=== PATIENT | male | born 1970 | race Caucasian/White ===

== ENCOUNTER 2017-06-27 14:07 | Day surgery (SDC) | payer OTHER ==
[2017-06-27] VITALS (10 sets, daily range): BP systolic 125–146; BP diastolic 81–91; PULSE 58–76; RESP 8–18; O2SAT 95–98
[~2017-06-27] VITALS: Ht 175.3 cm; Wt 75.7 kg
[~2017-06-27 14:07] MED LIST: CeFAZolin Inj 2 GM in IV Premix 1 EACH IV SCH
[2017-06-27] MEDS ORDERED: Ondansetron 2 mg/mL 2 mL Inj ONE (14:08)
[2017-06-27] MEDS ORDERED: fentaNYL-PF 50 mCg/mL 2 mL Inj ONE ×2 (14:08→20:07)
[2017-06-27] MEDS ORDERED: Rocuronium 10 mg/mL 5 mL Inj ONE (14:08)
[2017-06-27] MEDS ORDERED: Propofol 10,000 mCg/mL 20 mL Inj ONE (14:08)
[2017-06-27] MEDS ORDERED: CeFAZolin 2 Gm/50 mL D5W Duplex Bag IV ONE (14:46)
[2017-06-27] MEDS ORDERED: Lactated Ringer's 1,000 ML IV ONE ×2 (15:03→16:54)
--- NOTE | 2017-06-27 16:54 | PCM.HPANE ---
Patient Data Surgeon Admitting Provider: Attending Provider:Jhon Rocha MD Primary Care Physician:Seven Ferrell DO Other Provider:Valerie Acevedoingham Anesthesia Reason for Visit Right Distal Biceps Rupture Ht/WT & BMI Height (Feet): 5 Height (Inches): 9 Weight (Kilograms): 75.7 Body Mass Index 24.00 Allergies Coded Allergies: cashew nut (Verified Allergy, Severe, anaphylaxis, 06/26/17) Past Anesthesia History Anesthesia History: Denies:: Abnormal Airway, Anesthesia Reactions, Difficult Intubation, Fam Anesthesia Reaction, Fam Malignant Hypertherm, Malignant Hyperthermia Diabetes History Hx Diabetes?: No MRSA MRSA: No Medications Home Meds Incl Beta Jose: No No Active Prescriptions or Reported Meds History History of ENT Problems?: No HEENT History: Denies:: Abnormal Airway Difficult Intubation Dysphagia Hearing Problem Sinus Problem TMJ Denture Type: None Teeth Condition: Within Normal Limits Hx of Heart Problems?: No Cardiovascular History: Denies:: Abdominal Aortic Aneurism Atrial Fibrillation Hx of Respiratory Problem?: No Respiratory History: Positive for:: Asthma (as child) Pneumonia (2004) Denies:: COPD Chest Surgery Cough Dyspnea Emphysema Hemoptysis Pulmonary Embolism Tuberculosis Use of C-PAP Machine Use of Inhalers / NEBS Hx Neurologic Problems?: No Neurological History: Denies:: Alzheimer's Disease CVA Dementia Dizziness Headaches Multiple Sclerosis Parkinson's Disease Seizures TIA Hx of GI Problems?: No Hx of Problems?: No Genitourinary History: Denies:: HX of Hemodialysis HX of Peritoneal Dialysis: No Male Hx: Denies:: Prostate Problems Scrotal Mass Testicular Surgery Skin History: Denies:: History Skin Disorders? Pressure Ulcers Hx Musculoskeletal Problems?: No Musculoskeletal History: Positive for:: Musculoskeletal Trauma (Reason for admission) Denies:: Back Injury Degenerative Joint Fibromyalgia Joint Replacement Myasthenia Gravis Osteoarthritis Rheumatoid Arthritis Systemic Lupus Hx of Psycho/Social Problems?: No Hx [place]?: [place] [facility] [place]x Any Other Health Problems?: No Other History: Denies:: Cancer Endocrine Disease Hospitalization Thyroid Disease History Blood Transfusions: Positive for:: Accept Blood Products? Denies:: Blood Transfusions Hx Diabetes: No Hx Alcohol Use: NoHx Substance Use: No Stop/Bang S-Snoring: Do You Snore Loudly: Yes T-Tired: feel tired, fatigued: No O-Obsered: Observed not breath: No P-Blood Pressure: treated: No B- Body Mass Index > 35 kg/m2: No A- Age over 50: No N- Neck Large Circumference: No G- Gender Male: Yes LEONARDO Total Score: 2 Risk Assessment Category Category 1A: Patient has history of documented sleep apnea, and HAS NOT received any narcotic, sedative or anesthesia administration during this stay. Category 1B: Patient has history of documented sleep apnea, and HAS received any narcotic , sedative or anesthesia administration during this stay Category 2: Patient has SUSPECTED Obstructive Sleep Apnea, and HAS received any narcotic , sedative or anesthesia administration during this stay. Category 3: Patient has SUSPECTED Obstructive Sleep Apnea and HAS NOT received narcotic, sedative or anesthesia administration during this stay. Category 4: Outpatient in Procedural Areas with known sleep apnea or who screen positive for High Risk via the STOP/BANG questionnaire. Exam Exam Vital Signs Vital Signs Date Time Temp Pulse Resp B/P Pulse Ox O2 Delivery O2 Flow Rate FiO2 06/27/17 14:40 36.3 62 18 125/84 97 Room Air General Appearance: Alert, Oriented X3, Cooperative HEENT/AIRWAY: MP 2, Neck Movement (from), Mouth Opening (wnl) Lungs: Clear to Auscultation Heart: Exam Unremarkable Meds/Labs/Diagnostics Admission Meds Current Medications Lactated Ringer's (Lr) 1,000 ml @ ud STK-MED ONCE IV Last administered on 06/27t 15:03; Start 06/27/17 at 15:03; Stop 06/27/17 at 15:04; Status DC Plan Impression Patient chart reviewed, patient interviewed and anesthestic plan with risks, benefits, and alternatives discussed, and informed consent obtained. ASA Physical Status: ASA2 Mod Systemic Disease Anesthetic Plan: GA Bene/Risks/Altern/Consents: Yes HP Complete Prior to Induction: Yes Star Sagastume MD Jun 27, 2017 16:54
[2017-06-27] MEDS ORDERED: Ketorolac 15 mg/mL Inj IVPUSH ONE (17:55)
--- NOTE | 2017-06-27 18:02 | PCM.ORTHOP ---
Orthopedic Operative Report Date of Service: Jun 27, 2017 Pre Operative Diagnosis Right distal biceps rupture Post Operative Diagnosis right Distal biceps rupture Procedure Right distal biceps repair Surgeon Surgeon: Jhon Rocha MD Assistants: Mae Mcdaniels Indication for Procedure Right distal biceps rupture Findings Full thickness distal biceps rupture with 2 cm retraction Details of Procedure Operative Indications: Dl Harp is a 46-year-old right hand dominant male who presents with a right distal biceps rupture. A clear explanation was given to the patient regarding the condition, the conservative and surgical options. It was emphasized that the risks and benefits of surgery include but are not limited to infection, wound healing problems, damage to adjacent structures such as nerves, blood vessels and tendons, terminologist disability and pain, arthritis, hypersensitivity, deep vein thrombosis, pulmonary embolism and loss of limb or life. The likely post operative recovery and the instructions that are to be followed after surgery were also discussed and explained. The patient was invited to ask questions or seek clarification but there were none. The patient voiced understanding of the entire discussion and requested to move forward. A time-out was performed reconfirming the patients identity, laterality of surgery and proper administration of preoperative antibiotics. After smooth induction of anesthesia the right arm was examined. After the examination the extremity was prepped and draped in a sterile fashion with 2% Clorhexadine solution. A sterile tourniquet was applied. The incision was clearly marked out. We paused to reconfirm the procedure and laterality one last time. Incision was made with a #15 blade and subsequent sharp dissection was performed with aid of electrocautery to control the bleeding down to the level of the fascia. Appropriate full thickness skin flaps were subsequently developed. There was notable disruption of biceps from the trauma. The interval between the BR and pronator teres was identified and developed down to the level of the joint capsule. The lateral antebrachial cutaneous nerve was identified and retracted. Recurrent veins were isolated and coagulated with a bipolar electrocautery. The forearm was fully supinated and the area vacated by the ruptured biceps was identified. Using blunt disection and the bipolar the radial tuberosity was exposed until there was good visualization. At this time the biceps tendon was palpated retracted into the upper arm and was delivered out of the wound. The tendon's overall condition was ratty and the very end was debrided and then whipstitched in a grasping fashion with a Fiberloop. The allowed for a good grasping stitch. Provisionally it appeared that the tendon could be reduced down to the level of the radial tuberosity. The tuberosity was then debrided and a guidepin was placed slightly distal to the exact center of the insertion point. This was checked with Fluoro to ensure correct placement. The near cortex was then reamed with a 8mm reamer. A cortical button was attached to the end of the suture and the elbow flexed. The button was introduced through the bone tunnel flipped and then appropriate tension was applied to reduce the tendon to the bone. The reduction was secure and ROM was checked demonstrated that the biceps was not under too much tension. An interference 7X10mm screw was inserted. The tourniquet was let down and bleeding was controlled. The wound was irrigated copiously with sterile saline solution. Subcutaneous closure was achieved with 2-0 vicryl followed by interrupted 3-0 nylon suture. Steri strips were then applied. The wound was then dressed in a sterile fashion and a posterior splint was applied. The patient was awoken gently from anesthesia and transferred to the PACU in stable condition. LEAD RAMP SERVICE MAN SURGEON: During the operation, the services of physician assembler surgical garment were medically indicated and necessary to provide exposure of the operative site for the surgical procedure and to maintain the limb in a proper position to carry out the operation safely and efficiently. Without the qualified conservation assistant being present, it would have extended the operative procedure and made the procedure technically more difficult to perform. Please keep dressing clean dry and intact. Do not remove dressing until follow- up in clinic. Do not weight-bear on the affected extremity. You will follow up in clinic in 10-14 days for suture removal, and placement of new Steri- Strips. You will follow-up with me in clinic without x-rays at this time. You will follow-up with me at 6 weeks postop and may start weightbearing as tolerated at 6-8 weeks. depending on your motion and pain level. Please keep the affected extremity elevated when possible. You may use ice and/or heat as needed for comfort (preferably ice during the first 48-72 hours. Please feel free to call with any further questions, comments, and/or concerns. You have been given medications for pain, medication for possible constipation which is a side affect of the pain medications. Grafts, Implants: Implants-See Implant Record Complications There were no periprocedural complications identified. Condition Stable Anesthetic Administered: GA Catheters: None Output, Estimated Blood Loss: 5 Blood Admin during surgery: No Surgical Cast or Splint: Long Arm Splint, Other Surgical Specimen Removed: No Specimen sent to Pathology: No copies to: Jhon Rocha MD, Christopher L MD Jun 27, 2017 18:02
[2017-06-27] MEDS ORDERED: Lactated Ringer's 500 ML IV PRN (18:16)
[2017-06-27] MEDS ORDERED: Lactated Ringer's 1,000 ML IV SCH (18:16)
[2017-06-27] MEDS ORDERED: Ondansetron 2 mg/mL 2 mL Inj IVPUSH PRN (18:20)
[2017-06-27] MEDS ORDERED: Atropine 0.4 mg/mL Inj IVPUSH PRN (18:20)
[2017-06-27] MEDS ORDERED: Labetalol 5 mg/mL 20 mL Inj IV PRN (18:20)
[2017-06-27] MEDS ORDERED: EPHEDrine Sulfate 50 mg/mL Inj IVPUSH PRN (18:20)
[2017-06-27] MEDS ORDERED: Dexamethasone 4 mg/mL Inj IVPUSH PRN (18:20)
[2017-06-27] MEDS ORDERED: Phenylephrine 10,000 mCg/mL Inj IVPUSH PRN (18:20)
[2017-06-27] MEDS ORDERED: hydrALAZINE 20 mg/mL Inj IVPUSH PRN (18:20)
[2017-06-27] MEDS ORDERED: Ropivacaine-PF 0.5% 30 mL Inj INFILTRATE ONE (18:51)
[2017-06-27] MEDS: fentaNYL-PF 50 mCg/mL 2 mL Inj IVPUSH PRN ×2 (20:08→20:25)
[2017-06-27] MEDS: HYDROmorphone 1 mg/mL Inj IVPUSH PRN ×2 (20:13→20:20)
--- NOTE | 2017-06-27 20:50 | PCM.ANEP1 ---
Post Anesthesia PACU Phase 1 Assessment Vital Signs Vital Signs Date Time Temp Pulse Resp B/P Pulse Ox O2 Delivery O2 Flow Rate FiO2 06/27/17 20:37 58 10 135/82 95 Nasal Cannula 2 06/27/17 20:30 36.9 61 10 133/90 95 Nasal Cannula 2 06/27/17 20:25 63 8 140/81 95 Nasal Cannula 2 06/27/17 20:20 64 10 143/90 96 Nasal Cannula 2 06/27/17 20:15 64 9 142/84 96 Nasal Cannula 2 06/27/17 20:10 65 10 137/91 98 Room Air 06/27/17 20:05 70 12 138/83 97 Room Air 06/27/17 19:59 36.5 76 12 146/89 98 Room Air 06/27/17 14:40 36.3 62 18 125/84 97 Room Air Anesthetic Administered: GA Level of Alertness: Awake, talking BACK's with Equal Strength: Yes Pain: Yes Nausea or Vomiting: No CV Function & Hydration Stable: Yes Airway Device: Oxygen Delivery: Room Air Lungs: Normal Air Movement PACU Phase 2 Assessment Complications: No Follow up Care: No Patient Instructions Provided: N/A Star Sagastume MD Jun 27, 2017 20:50
[2017-06-27] MEDS: HYDROcodone-APAP 5-325 mg Tablet PO PRN ×2 (20:51→21:08)
== END 2017-06-27 23:59 | disposition home or self-care (01) ==
LOC: SAS 14:07
PROVIDERS: ATTEND Orthopaedic Surgery
DX: S46.211A Strain of muscle, fascia and tendon of other parts of biceps, right arm, initial encounter (principal); X50.3XXA Overexertion from repetitive movements, initial encounter; Y93.79 Activity, other specified sports and athletics; Y92.9 Unspecified place or not applicable; Y99.8 Other external cause status
CPT/HCPCS: 24342; 76000; C1713; J0690; J1170; J1885; J2250; J2405; J2704; J2795; J3010; J7120